=== PATIENT | female | born 1950 | race Caucasian/White ===

== ENCOUNTER 2016-11-11 10:02 | Emergency (ER) | payer MEDICARE, BC ==
[~2016-11-11] VITALS: Ht 165.1 cm; Wt 75.0 kg
[~2016-11-11 10:02] MED LIST: ALPRAZOLAM0.5 M2 PO; AMOXICILLIN500 MG PO; CELEBREX200 M1 PO; CELEBREX200 MG PO; CIPRO500 MG PO; CYCLOBENZAPR10 MG PO; DURAGESIC50 MCG/H1 TD; FENTANYL25 MCG/HR TD; FIORICET PO; FLEXERIL10 MG PO; LORTAB 1010 MG PO; LORTAB 5 PO; LORTAB 5/3255 MG PO; MEDDOSEPAK PO; PERCOCET 10/31 COMBO PO; PERCOCET 5/325M1 TAB PO; PERCOCET1 TA2 PO; XANAX0.5 MG OR
[2016-11-11] MEDS ORDERED: MEDDOSEPAK PO (10:21)
[2016-11-11] MEDS ORDERED: BENADRYL 50MG C50 MG PO (10:21)
[2016-11-11] MEDS ORDERED: BENADRY2 EX (10:21)
[2016-11-11 10:24] VITALS: BP 149/76
== END 2016-11-11 10:47 | disposition home or self-care (01) ==
LOC: ED 10:02
DX: T63.441A Toxic effect of venom of bees, accidental (unintentional), initial encounter (principal)

== ENCOUNTER 2021-05-26 18:15 | Emergency (ER) | payer MEDICARE, BC ==
[~2021-05-26 18:15] MED LIST changes: +BENADRY2 EX; +BENADRYL 50MG C50 MG PO
== END 2021-05-26 19:30 | disposition left against medical advice (07) ==
LOC: ED 18:15 → LWOBS 19:30
DX: Z53.21 Procedure and treatment not carried out due to patient leaving prior to being seen by health care provider (principal)

== ENCOUNTER 2021-05-29 10:22 | Emergency (ER) | payer MEDICARE, BC ==
[~2021-05-29] VITALS: Ht 165.1 cm; Wt 65.0 kg
[2021-05-29 10:36] VITALS: BP 138/77
[2021-05-29] MEDS ORDERED: FLEXERIL5 M1 PO (10:37)
[2021-05-29] MEDS ORDERED: AMOX/K CLAV875 M1 PO (11:05)
== END 2021-05-29 11:55 | disposition home or self-care (01) ==
LOC: ED 10:22
DX: R51.9 Headache, unspecified (principal); Z97.2 Presence of dental prosthetic device (complete) (partial)